=== PATIENT | female | born 1985 | race African-American/Black ===

== ENCOUNTER 2018-07-22 20:20 | Emergency (ER) | payer MEDICAID, MEDICARE ==
[~2018-07-22] VITALS: Ht 160 cm; Wt 81.6 kg
[~2018-07-22 20:20] MED LIST: CARBAMAZEPINE200 MG ORAL; IBUPROFEN600 MG ORAL; KEFLEX500 MG ORAL
[2018-07-22] MEDS ORDERED: CARBAMAZEPINE200 MG ORAL ×2 (20:29→20:43)
[2018-07-22 20:33] VITALS: BP 126/90
--- NOTE | 2018-07-22 20:34 | NUR ---
ER Nurse Note: Pt came from home c/o medication refill of carbamazapine. Pt has hx of seizures; last seizure was 10 years ago. Pt stated she takes 600mg twice a day. She took her morning dose but not her night dose. Pt a&ox4, VSS, no signs of distress. Will continue to montior.
[2018-07-22] MEDS ORDERED: CARBAMAZEPINE300 MG ORAL (20:52)
[2018-07-22 20:58] VITALS: BP 126/90
--- NOTE | 2018-07-22 20:59 | NUR ---
ER Nurse Note: Pt seen, treated, medically cleared by ER PA. Discharge instructions and perscriptions given with repeat verbalziation by pt. Instructed pt to follow up with primary care physican within one week. Pt a&ox4, VSS, no signs of distress. ID band removed. Pt left with all belongings via own transportaiton.
--- NOTE | 2018-07-23 15:19 | Emergency Room Report ---
History of Present Illness General Chief Complaint: Medication Refill Source: Patient Present Illness HPI 32-year-old female presents ED for evaluation. Is here for medication refill. History of seizures takes carbamazepine. States that her PMD is out of town. Takes 2 pills in the morning and 2 pills at night. Took her morning dose. States she's not had a seizure in some time. Feels fine. No other aggravating relieving factors. Denies any other associated symptoms Allergies: Coded Allergies: No Known Allergies (Unverified , 03/14/13) Patient History Past Medical History: seizures Past Surgical History: none Pertinent Family History: none Social History: Denies: smoking, alcohol use, drug use Last Menstrual Period: 07/08/18 Now: No Immunizations: UTD Reviewed Nursing Documentation: PMH: Agreed; PSxH: Agreed Nursing Documentation-PMH Past Medical History: No History, Except For Hx Cardiac Problems: No Hx Hypertension: No Hx Pacemaker: No Hx Asthma: No Hx COPD: No Hx Diabetes: No Hx Cancer: No Hx Gastrointestinal Problems: No Hx Dialysis: No Hx Neurological Problems: No Hx Cerebrovascular Accident: No Hx Seizures: Yes - EPILEPSY (SINCE AGE 14) Review of Systems All Other Systems: negative except mentioned in HPI Physical Exam Vital Signs Date Time Temp Pulse Resp B/P (MAP) Pulse Ox O2 Delivery O2 Flow Rate FiO2 07/22/18 20:24 97.9 70 12 126/90 99 Sp02 EP Interpretation: reviewed, normal General Appearance: no apparent distress, alert, GCS 15, non-toxic Head: normocephalic, atraumatic Eyes: bilateral eye normal inspection, bilateral eye PERRL ENT: hearing grossly normal, normal pharynx, no angioedema, normal voice Neck: full range of motion, supple/symm/no masses Respiratory: chest non-tender, lungs clear, normal breath sounds, speaking full sentences Cardiovascular #1: regular rate, rhythm, no edema Cardiovascular #2: 2+ carotid (R), 2+ carotid (L), 2+ radial (R), 2+ radial (L) , 2+ dorsalis pedis (R), 2+ dorsalis pedis (L) Gastrointestinal: normal bowel sounds, non tender, soft, non-distended, no guarding, no rebound Rectal: deferred Genitourinary: normal inspection, no CVA tenderness Musculoskeletal: back normal, gait/station normal, normal range of motion, non- tender Neurologic: alert, oriented x3, responsive, motor strength/tone normal, sensory intact, speech normal Psychiatric: judgement/insight normal, memory normal, mood/affect normal, no suicidal/homicidal ideation Reflexes: 3+ bicep (R), 3+ bicep (L), 3+ tricep (R), 3+ tricep (L), 3+ knee (R) , 3+ knee (L) Skin: normal color, no rash, warm/dry, well hydrated Lymphatic: no adenopathy Medical Decision Making Diagnostic Impression: Primary Impression: Encounter for medication refill ER Course 32-year-old female presents to ED refill of her medication. History of seizures , takes carbamezapine hospital course: After initial history, physical exam reveals a known acute distress. Physical exam unremarkable. I will provide her with refill of her carbamazepine. Safe for discharge close outpatient follow-up Diagnosis-encounter for medication refill Stable and discharged to home with prescription for Carbamezapine. Followup with PMD. Return to ED if symptoms recur or worsen Last Vital Signs Date Time Temp Pulse Resp B/P (MAP) Pulse Ox O2 Delivery O2 Flow Rate FiO2 07/22/18 20:58 97.9 72 12 126/90 99 Status: improved Disposition: HOME, SELF-CARE Condition: Stable Scripts Carbamazepine (CARBAMAZEPINE) 300 Mg Cpmp.12hr 600 MG ORAL TWICE A DAY for 30 Days, CAP Prov: Aubrey Gamboa MD 07/22/18 Referrals: Clyde Back MD NOT CHOSEN IPA/,REFERRING (PCP) [facility] Patient Instructions: Medicine Refill at the Emergency Department Aubrey Gamboa MD Jul 23, 2018 15:19
== END 2018-07-22 21:00 | disposition home or self-care (01) ==
LOC: EMR 20:50
DX: Z76.0 Encounter for issue of repeat prescription (principal); G40.909 Epilepsy, unspecified, not intractable, without status epilepticus
CPT/HCPCS: 99282

== ENCOUNTER 2018-09-04 00:49 | Emergency (ER) | payer MEDICAID, MEDICARE, OTHER ==
[~2018-09-04] VITALS: Ht 160 cm; Wt 82.6 kg
[~2018-09-04 00:49] MED LIST changes: +CARBAMAZEPINE300 MG ORAL
--- NOTE | 2018-09-04 00:59 | NUR ---
ED Nurse Note: Patient ambulated to ED c/o medication refill for carbamazapine. patient states she last took it 09/02 at 1999. AO4. NAD. VSS. Accompanied by significant other.
[2018-09-04 01:01] VITALS: BP 136/96
[2018-09-04 01:15] VITALS: BP 136/96
[2018-09-04] MEDS ORDERED: CARBAMAZEPINE300 MG ORAL (01:15)
--- NOTE | 2018-09-04 01:15 | NUR ---
ER DISCHARGE NOTE: Patient is cleared to be discharged per ERMD, pt is aox4, on room air, with stable vital signs. Accompanied by significant other. pt was given dc and prescription instructions, pt was able to verbalize understanding, pt id band and iv site removed without complications. pt is able to ambulate with steady gait. pt took all belongings.
--- NOTE | 2018-09-04 01:16 | Emergency Room Report ---
History of Present Illness General Chief Complaint: Medication Refill Source: Patient Present Illness HPI Is a 32-year-old female with a long-standing history of seizure. She takes carbamazepine for it. She presents with chief complaint of refill on her medication. She is switching insurance to [employer] and in the process needed a refill of her medication. She's been out for about one day. No seizure activity. Allergies: Coded Allergies: No Known Allergies (Unverified , 03/14/13) Patient History Past Medical History: see triage record, old chart reviewed, seizures Past Surgical History: none Pertinent Family History: none Social History: Denies: smoking Last Menstrual Period: 08/27/18 Now: No Immunizations: other Reviewed Nursing Documentation: PMH: Agreed; PSxH: Agreed Nursing Documentation-PMH Past Medical History: No History, Except For Hx Cardiac Problems: No Hx Hypertension: No Hx Pacemaker: No Hx Asthma: No Hx COPD: No Hx Diabetes: No Hx Cancer: No Hx Gastrointestinal Problems: No Hx Dialysis: No Hx Neurological Problems: No Hx Cerebrovascular Accident: No Hx Seizures: Yes - EPILEPSY (SINCE AGE 14) Review of Systems Eye: Denies: eye pain, blurred vision ENT: Denies: ear pain, nose congestion, throat swelling Respiratory: Denies: cough, shortness of breath Cardiovascular: Denies: chest pain, palpitations Gastrointestinal: Denies: abdominal pain, diarrhea, nausea, vomiting Musculoskeletal: Denies: back pain, joint pain Skin: Denies: rash Neurological: Denies: headache, numbness Endocrine: Denies: increased thirst, increased urine Hematologic/Lymphatic: Denies: easy bruising All Other Systems: negative except mentioned in HPI Physical Exam Vital Signs Date Time Temp Pulse Resp B/P (MAP) Pulse Ox O2 Delivery O2 Flow Rate FiO2 09/04/18 00:53 97.7 73 12 136/96 100 Room Air vitals normal Sp02 EP Interpretation: reviewed, normal General Appearance: well appearing, no apparent distress, alert Head: normocephalic, atraumatic Eyes: bilateral eye PERRL, bilateral eye EOMI ENT: hearing grossly normal, normal pharynx Neck: full range of motion, supple, no meningismus Respiratory: chest non-tender, lungs clear, normal breath sounds Cardiovascular #1: regular rate, rhythm, no murmur Gastrointestinal: normal bowel sounds, non tender, no mass, no organomegaly, no bruit, non-distended Musculoskeletal: back normal, gait/station normal, normal range of motion Psychiatric: mood/affect normal Skin: warm/dry Medical Decision Making Diagnostic Impression: Primary Impression: Encounter for medication refill ER Course patient here for refill on medications. Last Vital Signs Date Time Temp Pulse Resp B/P (MAP) Pulse Ox O2 Delivery O2 Flow Rate FiO2 09/04/18 01:01 97.7 73 12 136/96 100 Room Air Status: unchanged Disposition: HOME, SELF-CARE Condition: Stable Scripts Carbamazepine (CARBAMAZEPINE) 300 Mg Cpmp.12hr 600 MG ORAL TWICE A DAY, #120 CAP Prov: Lit Calvillo MD 09/04/18 Patient Instructions: Medicine Refill at the Emergency Department Additional Instructions: Follow-up with your doctor scheduled in September. Return if worse. Lit Calvillo MD Sep 04, 2018 01:16
== END 2018-09-04 01:20 | disposition home or self-care (01) ==
LOC: EMR 01:16
DX: G40.909 Epilepsy, unspecified, not intractable, without status epilepticus (principal); Z76.0 Encounter for issue of repeat prescription
CPT/HCPCS: 99282

== ENCOUNTER 2019-09-02 20:41 | Emergency (ER) | payer MEDICAID, OTHER ==
[~2019-09-02] VITALS: Ht 160 cm; Wt 83.9 kg
[2019-09-02 21:05] VITALS: BP 132/81
[2019-09-02] MEDS ORDERED: carBAMazepine 200mg tab ORAL ONE (21:15)
[2019-09-02] MEDS ORDERED: CARBAMAZEPINE300 MG ORAL (21:18)
--- NOTE | 2019-09-02 21:19 | Emergency Room Report ---
History of Present Illness General Chief Complaint: Seizure Source: Patient Present Illness HPI This is a 33-year-old female with history of seizure. She presents with chief complaint of headache and needing seizure medication. She takes carbamazepine 600 mg twice a day. She ran out yesterday. She is getting headache and felt like his seizure may be coming on. The pharmacist been trying to get her doctor for refill but was unsuccessful. The seizure activity. No nausea no vomiting. No focal deficit. No other complaint. Allergies: Coded Allergies: No Known Allergies (Unverified , 03/14/13) Patient History Past Medical History: see triage record, old chart reviewed Past Surgical History: none Pertinent Family History: none Social History: Denies: smoking Last Menstrual Period: 06/2019 Now: No Immunizations: other Reviewed Nursing Documentation: PMH: Agreed; PSxH: Agreed Nursing Documentation-PMH Hx Cardiac Problems: No Hx Hypertension: No Hx Pacemaker: No Hx Asthma: No Hx COPD: No Hx Diabetes: No Hx Cancer: No Hx Gastrointestinal Problems: No Hx Dialysis: No Hx Neurological Problems: No Hx Cerebrovascular Accident: No Hx Seizures: Yes - EPILEPSY (SINCE AGE 14) Review of Systems Eye: Denies: eye pain, blurred vision ENT: Denies: ear pain, nose congestion, throat swelling Respiratory: Denies: cough, shortness of breath Cardiovascular: Denies: chest pain, palpitations Gastrointestinal: Denies: abdominal pain, diarrhea, nausea, vomiting Musculoskeletal: Denies: back pain, joint pain Skin: Denies: rash Neurological: Denies: headache, numbness Endocrine: Denies: increased thirst, increased urine Hematologic/Lymphatic: Denies: easy bruising All Other Systems: negative except mentioned in HPI Physical Exam Vital Signs Date Time Temp Pulse Resp B/P (MAP) Pulse Ox O2 Delivery O2 Flow Rate FiO2 09/02/19 20:59 97.3 93 16 132/81 (98) 98 Room Air Vitals normal Sp02 EP Interpretation: reviewed, normal General Appearance: well appearing, no apparent distress, alert Head: normocephalic, atraumatic Eyes: bilateral eye PERRL, bilateral eye EOMI ENT: hearing grossly normal, normal pharynx Neck: full range of motion, supple, no meningismus Respiratory: chest non-tender, lungs clear, normal breath sounds Cardiovascular #1: regular rate, rhythm, no murmur Gastrointestinal: normal bowel sounds, non tender, no mass, no organomegaly, no bruit, non-distended Musculoskeletal: back normal, normal range of motion, gait/station normal Psychiatric: mood/affect normal Medical Decision Making Diagnostic Impression: Primary Impression: Encounter for medication refill ER Course Patient here for refill on her carbamazepine. No active seizure. Dose of her night medication given here. Last Vital Signs Date Time Temp Pulse Resp B/P (MAP) Pulse Ox O2 Delivery O2 Flow Rate FiO2 09/02/19 20:59 97.3 93 16 132/81 (98) 98 Room Air Status: improved Disposition: HOME, SELF-CARE Condition: Stable Scripts Carbamazepine (CARBAMAZEPINE) 300 Mg Cpmp.12hr 600 MG ORAL TWICE A DAY, #120 CAP Prov: Lit Calvillo MD 09/02/19 Patient Instructions: Seizure, Adult Additional Instructions: Follow-up with your doctor in 7 days. Return if symptoms worsen. Lit Calvillo MD Sep 02, 2019 21:19
[2019-09-02 21:30] VITALS: BP 132/81
== END 2019-09-02 21:30 | disposition home or self-care (01) ==
LOC: EMR 21:16
DX: R51 Headache (principal); Z76.0 Encounter for issue of repeat prescription; G40.909 Epilepsy, unspecified, not intractable, without status epilepticus
CPT/HCPCS: 99282